=== PATIENT | male | born 1980 | race African-American/Black ===

== ENCOUNTER 2019-10-24 13:44 | Emergency (ER) | payer BC ==
[~2019-10-24] VITALS: Ht 180.3 cm; Wt 136.1 kg
[2019-10-24 14:00] VITALS: BP 170/85
--- NOTE | 2019-10-24 14:39 | RAD ---
Examination: 3 views of the right ankle HISTORY: History of pain COMPARISON: None available FINDINGS: The alignment of the ankle mortise grossly appears unremarkable. There is no acute fracture or dislocation identified. Mild soft tissue swelling identified about the ankle joint. IMPRESSION: No acute osseous findings. If pain persists consider follow-up MRI. Electronically signed by: Matteo Gomez MD (10/24/2019 2:36 PM) [facility]
[2019-10-24] MEDS ORDERED: DICL50TA2 PO (14:56)
--- NOTE | 2019-10-24 14:56 | PHYS DOC ---
Past Medical History Past Medical History: Hypertension Past Surgical History: No Surgical History Alcohol Use: Occasionally Drug Use: Marijuana Adult General Chief Complaint Chief Complaint: ANKLE PROBLEM HPI HPI Patient is a 39 year old male with history of hypertension who presents to the ED today complaining of mild intermittent right ankle pain that began on October 21, 2019 after he fell on his ankle. Patient denies any loss of consciousness. Describes the pain as throbbing and intermittent worse on weight bearing. He states the brace he has on has been alleviating the pain. Review of Systems Review of Systems Constitutional: Denies fever or chills [] Musculoskeletal: Reports right ankle pain Integument: Denies rash or skin lesions [] Neurologic: Denies headache, focal weakness or sensory changes [] All other systems were reviewed and found to be within normal limits, except as documented in this note. Allergies Allergies Allergies Coded Allergies Type Severity Reaction Last Updated Verified Penicillins Allergy Unknown 10/24/19 Yes Physical Exam Physical Exam Constitutional: Well developed, well nourished, no acute distress, non-toxic appearance. [] Skin: Warm, dry, no erythema, no rash. [] Back: No tenderness, no CVA tenderness. [] Extremities: Right ankle with no obvious deformity. Small amount of soft tissue swelling noted diffusely. Tenderness on the anterior aspect of the ankle. Full range of motion to the right ankle and toes. +2 right pedal pulse. Cap refill less than 2 seconds the right toes. Sensation intact to the right lower extremity. Neurologic: Alert and oriented X 3, normal motor function, normal sensory function, no focal deficits noted. [] Psychologic: Affect normal, judgement normal, mood normal. [] Current Patient Data Vital Signs Vital Signs Date Time Temp Pulse Resp B/P (MAP) Pulse Ox O2 Delivery O2 Flow Rate FiO2 10/24/19 14:00 97.0 77 16 170/85 (113) 96 Room Air 97.0 EKG EKG [] Radiology/Procedures Radiology/Procedures []PROCEDURE: ANKLE RIGHT 3V Examination: 3 views of the right ankle HISTORY: History of pain COMPARISON: None available FINDINGS: The alignment of the ankle mortise grossly appears unremarkable. There is no acute fracture or dislocation identified. Mild soft tissue swelling identified about the ankle joint. IMPRESSION: No acute osseous findings. If pain persists consider follow-up MRI. Electronically signed by: Matteo Gomez MD (10/24/2019 2:36 PM) [facility] DICTATED and SIGNED BY: MATTEO GOMEZ MD DATE: 10/24/19 1436 Course & Med Decision Making Course & Med Decision Making Pertinent Labs and Imaging studies reviewed. (See chart for details) This is a 39-year-old male patient presenting to the ED today with right ankle pain status post falling on October 21, 2019. Right ankle x-rays are negative for any acute findings. Patient already has a brace on. Ice elevation encouraged. Rx for ibuprofen. Follow-up with primary care doctor orthopedic doctor in 1-2 weeks. Dragon Disclaimer Dragon Disclaimer This electronic medical record was generated, in whole or in part, using a voice recognition dictation system. Departure Departure Impression: Primary Impression: Right ankle sprain Disposition: HOME, SELF-CARE Condition: STABLE Referrals: NO PCP (PCP) ERYN AHUMADA II, MD Follow up in 1-2 weeks Patient Instructions: Ankle Sprain Additional Instructions: You have right ankle sprain. Continue wearing the brace. Try to ice and elevate the extremity. Take the pain medicine prescribed as needed for pain. Please follow-up with your own doctor or the provided orthopedic doctor in 1-2 weeks. Scripts Diclofenac Potassium (DICLOFENAC POTASSIUM) 50 Mg Tablet 1 TAB PO BID, #20 TAB 0 Refills Prov: NASEEM NEFF [place] 10/24/19 Problem Qualifiers Primary Impression: Right ankle sprain Encounter type: initial encounter Involved ligament of ankle: unspecified ligament Qualified Codes: S93.401A - Sprain of unspecified ligament of right ankle, initial encounter NASEEM NEFF APRN Oct 24, 2019 14:56
== END 2019-10-24 15:08 | disposition home or self-care (01) ==
LOC: ER 13:44
DX: S93.401A Sprain of unspecified ligament of right ankle, initial encounter (principal); I10 Essential (primary) hypertension; F12.90 Cannabis use, unspecified, uncomplicated; Z88.0 Allergy status to penicillin; X58.XXXA Exposure to other specified factors, initial encounter; Y93.89 Activity, other specified; Y92.89 Other specified places as the place of occurrence of the external cause; Y99.8 Other external cause status
CPT/HCPCS: 73610; 99284